=== PATIENT | male | born 1965 | race Caucasian/White ===

== ENCOUNTER 2025-06-01 10:05 | Emergency (ER) | payer SELFPAY ==
[~2025-06-01] VITALS: Ht 177.8 cm; Wt 72.6 kg
[2025-06-01] MEDS ORDERED: LOSA50TA39 PO (10:15)
[2025-06-01 11:10] LABS: PLATELET COUNT (AUTO) 264 K/uL (152-348); RED BLOOD CELL COUNT(AUTO) 4.39 MIL/uL (4.06-5.63); RED CELL DISTRIBUTION WIDTH 13.6 % (12.1-16.2); WHITE BLOOD COUNT (AUTO) 7.0 K/uL (3.6-10.2)
[2025-06-01 11:18] LABS: CREATININE 0.8 mg/dL (0.6-1.3); SODIUM SERUM 137.0 mmol/L (136-145); UREA NITROGEN, BLOOD 10.0 mg/dL (7-18)
[2025-06-01 11:22] LABS: ETHANOL 286.0 MG/DL (0-10)
[2025-06-01 11:24] LABS: ASPARTATE AMINOTRANSFERASE 59.0 U/L (15-37); TOTAL PROTEIN, SERUM 7.9 g/dL (6.4-8.2)
[2025-06-01 12:03] LABS: *BILIRUBIN,URIN NEGATIVE (NEGATIVE); *BLOOD, URINE NEGATIVE (NEGATIVE); *CLARITY,URINE CLEAR (CLEAR); *COLOR,URINE YELLOW (YELLOW); *KETONES,URINE NEGATIVE (NEGATIVE); *PROTEIN,URINE TRACE (NEGATIVE); *UROBILINOGEN,URINE 0.2 E.U./dl (NORMAL); LEUKOCYTE ESTERASE ,URINE NEGATIVE (NEGATIVE); NITRITE, URINE NEGATIVE (NEGATIVE); UGLUCOSE NEGATIVE (NEGATIVE)
[2025-06-01 12:22] LABS: *AMPHETAMINE, URINE NEGATIVE (NEGATIVE); *BARBITURATE, URINE NEGATIVE (NEGATIVE); *BENZODIAZEPINE, URINE NEGATIVE (NEGATIVE); *CANNABINOID, URINE NEGATIVE (NEGATIVE); *COCCAINE, URINE NEGATIVE (NEGATIVE); *OPIATE, URINE NEGATIVE (NEGATIVE); *PHENCYCLIDINE SCREEN,URINE NEGATIVE (NEGATIVE); FENTANYL, URINE NEGATIVE (NEGATIVE)
[2025-06-01 13:14] VITALS: O2SAT 96
== END 2025-06-01 16:16 | disposition home or self-care (01) ==
LOC: ER 10:05
DX: S60.811A Abrasion of right wrist, initial encounter (principal); F10.10 Alcohol abuse, uncomplicated; F60.3 Borderline personality disorder; I25.2 Old myocardial infarction; R07.9 Chest pain, unspecified; F32.A Depression, unspecified; Z20.822 Contact with and (suspected) exposure to COVID-19; Z65.3 Problems related to other legal circumstances; Z79.899 Other long term (current) drug therapy; X78.8XXA Intentional self-harm by other sharp object, initial encounter; Y93.89 Activity, other specified; Y92.89 Other specified places as the place of occurrence of the external cause; Y99.8 Other external cause status; Y90.8 Blood alcohol level of 240 mg/100 ml or more
CPT/HCPCS: 36415; 71045; 85025; A4606; A4663; G0480

== ENCOUNTER 2025-08-17 22:36 | Inpatient (IN) | payer MEDICAID ==
[~2025-08-17] VITALS: Ht 175.3 cm; Wt 73.5 kg
[~2025-08-17 22:36] MED LIST: LOSA50TA39 PO
[2025-08-17] MEDS: PANTOPRAZOLE SODIUM IV 80 MG in IV DEXTROSE 5% 100 ML IV ONE (22:45)
[2025-08-17] MEDS: IV NORMAL SALINE 1000 ML BAG IV ONE (22:45)
[2025-08-17 23:08] LABS: *OCCULT BLOOD STOOL POSITIVE (NEGATIVE)
[2025-08-17] MEDS ORDERED: LIDOCAINE 2% 100 MG/5 ML SYRINGE ONE (23:36)
[2025-08-17 23:39] LABS: WHITE BLOOD COUNT (AUTO) 11.2 K/uL (3.6-10.2)
[2025-08-17 23:41] LABS: PLATELET COUNT (AUTO) 164 K/uL (152-348); RED BLOOD CELL COUNT(AUTO) 1.79 MIL/uL (4.06-5.63); RED CELL DISTRIBUTION WIDTH 14.5 % (12.1-16.2)
[2025-08-17 23:42] LABS: CREATININE 4.5 mg/dL (0.6-1.3); SODIUM SERUM 143 mmol/L (136-145); UREA NITROGEN, BLOOD 79 mg/dL (7-18)
[2025-08-17 23:47] LABS: ASPARTATE AMINOTRANSFERASE 104 U/L (15-37); TOTAL PROTEIN, SERUM 5.8 g/dL (6.4-8.2)
[2025-08-17] MEDS ORDERED: PANTOPRAZOLE SODIUM 40 MG VIAL ONE (23:59)
[2025-08-18] VITALS (99 sets, daily range): BP systolic 52–149; BP diastolic 21–118; TEMP 97–98.8; O2SAT 94–100
[2025-08-18 00:17] LABS: ABG BASE EXCESS -11.1 mmol/L (-2.0-3.0); ABG HCO3 14.3 mmol/L (21.0-28.0); ABG PCO2 29.6 mmHg (35.0-48.0); ABG PH 7.302 (7.350-7.450); ABG PO2 461.9 mmHg (83.0-108.0); ABG SITE LEFT FEMORAL; ABG TOTAL HEMOGLOBIN 5.3 G/dL (13.5-17.5); AaDO2 99.8 mmHg; FIO2 100.0 %; PEEP,BG 5.0 cmH20; SET RATE, BG 18.0; VT, ABG 500 mL
[2025-08-18] MEDS ORDERED: NOREPINEPHRINE 8MG/NS 250ML 250 ML IV ONE ×4 (00:22→04:06)
[2025-08-18 00:30] LABS: LACTIC ACID 38.3 mmol/L (0.4-2.0)
[2025-08-18] MEDS ORDERED: ONDANSETRON 4 MG/2 ML VIAL IV PRN (00:45)
[2025-08-18] MEDS ORDERED: PROPOFOL 100 ML ONE (00:54)
[2025-08-18 01:13] LABS: BAND % (MANUAL) 1 % (0-10); LYMPHOCYTES % (MANUAL) 20 % (20-40); MONOCYTES % (MANUAL) 4 % (2-10); NEUTROPHILS % (MANUAL) 75 % (42-75)
[2025-08-18 01:14] LABS: PLATELET ESTIMATE ADEQUATE
[2025-08-18 01:15] LABS: NUCLEATED RED BLOOD CELLS 3.0 /100WBC
[2025-08-18] MEDS: PROPOFOL 100 ML IV PRN ×2 (01:36→13:39)
[2025-08-18] MEDS: NOREPINEPHRINE BITARTRATE 8 MG in IV NORMAL SALINE 250 ML IV PRN (01:41)
[2025-08-18] MEDS: IV D5/ 0.9% NACL 1,000 ML IV ONE (02:14)
[2025-08-18 02:30] LABS: RED BLOOD CELL COUNT(AUTO) 2.79 MIL/uL (4.06-5.63); RED CELL DISTRIBUTION WIDTH 23.4 % (12.1-16.2); WHITE BLOOD COUNT (AUTO) 15.7 K/uL (3.6-10.2)
[2025-08-18 02:51] LABS: SODIUM SERUM 141.0 mmol/L (136-145)
[2025-08-18 02:52] LABS: CREATININE 4.2 mg/dL (0.6-1.3)
[2025-08-18 02:53] LABS: UREA NITROGEN, BLOOD 81.0 mg/dL (7-18)
[2025-08-18] MEDS ORDERED: PHENYLEPHRINE 10 MG/1 ML VIAL ONE ×2 (03:09→03:14)
[2025-08-18] MEDS ORDERED: PHENYLEPHRINE IV 50 MG in IV NORMAL SALINE 245 ML IV PRN (03:15)
[2025-08-18] MEDS: PHENYLEPHRINE IV 50 MG in IV NORMAL SALINE 245 ML IV PRN (04:27)
[2025-08-18] MEDS ORDERED: MIDAZOLAM HCL 50 MG in IV NORMAL SALINE 40 ML IV PRN (04:45)
[2025-08-18] MEDS ORDERED: SODIUM CHLORIDE 4 MEQ/ML VIAL 154 MEQ in IV 10% DEXTROSE 1,000 ML IV PRN (05:00)
[2025-08-18 05:13] LABS: PLATELET COUNT (AUTO) 119 K/uL (152-348)
[2025-08-18] MEDS: BLOOD SUGAR DIAGNOSTIC 1 EACH STRIP VI SCH ×3 (05:49→20:26)
[2025-08-18] MEDS ORDERED: THIAMINE HCL INJ 100 MG in IV DEXTROSE 5% 50 ML IV SCH (06:00)
[2025-08-18] MEDS ORDERED: NOREPINEPHRINE BITARTRATE 4 MG/4 ML VIAL IV ONE (06:05)
[2025-08-18] MEDS: NOREPINEPHRINE 8MG/NS 250ML 250 ML IV PRN (06:49)
[2025-08-18] MEDS: NOREPINEPHRINE 8MG/NS 250ML 250 ML IV ONE (06:50)
[2025-08-18 07:43] LABS: ABG BASE EXCESS -7.9 mmol/L (-2.0-3.0); ABG HCO3 16.1 mmol/L (21.0-28.0); ABG PCO2 27.0 mmHg (35.0-48.0); ABG PH 7.393 (7.350-7.450); ABG PO2 138.4 mmHg (83.0-108.0); ABG SITE RIGHT RADIAL; ABG TOTAL HEMOGLOBIN 7.3 G/dL (13.5-17.5); AaDO2 98.8 mmHg; FIO2 35.0 %; PEEP,BG 5.0 cmH20; SET RATE, BG 22.0; VT, ABG 500 mL
[2025-08-18] MEDS ORDERED: MAGNESIUM SULFATE/D5W 100 ML IV SCH (08:00)
[2025-08-18] MEDS ORDERED: NOREPINEPHRINE BITARTRATE 32 MG in IV NORMAL SALINE 218 ML IV PRN (08:00)
[2025-08-18] MEDS ORDERED: MVI ADULT 10 ML VIAL=1 AMP 10 ML in IV D5/ 0.9% NACL 1,000 ML IV ONE (08:30)
[2025-08-18 08:35] LABS: CREATININE 4.3 mg/dL (0.6-1.3); SODIUM SERUM 144 mmol/L (136-145); UREA NITROGEN, BLOOD 80 mg/dL (7-18)
[2025-08-18 08:46] LABS: ASPARTATE AMINOTRANSFERASE < 5 U/L (15-37); TOTAL PROTEIN, SERUM 5.2 g/dL (6.4-8.2)
[2025-08-18] MEDS: NOREPINEPHRINE BITARTRATE 32 MG in IV NORMAL SALINE 218 ML IV PRN (08:58)
[2025-08-18] MEDS ORDERED: PANTOPRAZOLE SODIUM IV 80 MG in IV DEXTROSE 5% 500 ML IV SCH (09:00)
[2025-08-18] MEDS ORDERED: THIAMINE HCL 200 MG/2 ML VIAL IV SCH (09:00)
[2025-08-18 09:13] LABS: FIBRINOGEN ACTIVITY 170.0 mg/dL (210-360)
[2025-08-18] MEDS ORDERED: FOLIC ACID 1 MG in IV DEXTROSE 5% 50 ML IV SCH (09:30)
[2025-08-18] MEDS: PHYTONADIONE 10 MG/1 ML AMPUL SQ ONE (09:41)
[2025-08-18] MEDS: PANTOPRAZOLE SODIUM 40 MG VIAL IV SCH (09:41)
[2025-08-18] MEDS: THIAMINE HCL INJ 100 MG in IV DEXTROSE 5% 50 ML IV SCH (09:42)
[2025-08-18] MEDS: VANCOMYCIN IV 1,000 MG in IV DEXTROSE 5% 250 ML IV ONE (10:30)
[2025-08-18] MEDS: POTASSIUM CHLORIDE 50 ML IV SCH ×2 (10:37→14:37)
[2025-08-18] MEDS: OCTREOTIDE ACETATE DRIP 500 MCG in IV NORMAL SALINE 99 ML IV SCH (11:09)
[2025-08-18] MEDS: IV NS 1000 ML 1,000 ML IV ONE ×2 (11:33→16:55)
[2025-08-18 12:24] LABS: *BILIRUBIN,URIN NEGATIVE (NEGATIVE); *BLOOD, URINE 3+ (NEGATIVE); *CLARITY,URINE CLOUDY (CLEAR); *COLOR,URINE YELLOW (YELLOW); *KETONES,URINE TRACE (NEGATIVE); *UROBILINOGEN,URINE 0.2 E.U./dl (NORMAL); LEUKOCYTE ESTERASE ,URINE NEGATIVE (NEGATIVE); NITRITE, URINE NEGATIVE (NEGATIVE); UGLUCOSE NEGATIVE (NEGATIVE)
[2025-08-18 12:25] LABS: *PROTEIN,URINE 3+ (NEGATIVE)
[2025-08-18 12:29] LABS: YEAST,URINE FEW /HPF (NONE SEEN)
[2025-08-18 12:34] LABS: *AMPHETAMINE, URINE NEGATIVE (NEGATIVE); *BARBITURATE, URINE NEGATIVE (NEGATIVE); *BENZODIAZEPINE, URINE NEGATIVE (NEGATIVE); *CANNABINOID, URINE NEGATIVE (NEGATIVE); *COCCAINE, URINE NEGATIVE (NEGATIVE); *OPIATE, URINE NEGATIVE (NEGATIVE); FENTANYL, URINE NEGATIVE (NEGATIVE)
[2025-08-18] MEDS ORDERED: VALS80TA2 PO (12:43)
[2025-08-18] MEDS ORDERED: GABA100C PO (12:43)
[2025-08-18 12:44] LABS: *PHENCYCLIDINE SCREEN,URINE NEGATIVE (NEGATIVE)
[2025-08-18] MEDS ORDERED: TRAZ-182 PO (12:44)
[2025-08-18] MEDS ORDERED: DULO60CA45 PO (12:44)
[2025-08-18] MEDS ORDERED: IBUP200C5 PO (12:45)
[2025-08-18] MEDS ORDERED: VITA-287 PO (12:45)
[2025-08-18] MEDS ORDERED: FLUO20TA28 PO (12:45)
[2025-08-18] MEDS ORDERED: ACET-2605 PO (12:46)
[2025-08-18] MEDS ORDERED: CALC500T13 PO (12:47)
[2025-08-18] MEDS ORDERED: ASPI-973 PO (12:47)
[2025-08-18] MEDS: IV D5/ 0.9% NACL 1,000 ML IV PRN ×2 (12:49→14:39)
[2025-08-18 13:07] LABS: PLATELET COUNT (AUTO) 127 K/uL (152-348); RED BLOOD CELL COUNT(AUTO) 2.61 MIL/uL (4.06-5.63); RED CELL DISTRIBUTION WIDTH 23.0 % (12.1-16.2); WHITE BLOOD COUNT (AUTO) 18.8 K/uL (3.6-10.2)
[2025-08-18 13:10] LABS: CREATININE 4.6 mg/dL (0.6-1.3); SODIUM SERUM 141.0 mmol/L (136-145)
[2025-08-18 13:11] LABS: UREA NITROGEN, BLOOD 85.0 mg/dL (7-18)
[2025-08-18] MEDS: CEFEPIME (MAXEPIME) 1 G in IV DEXTROSE 5% 50 ML IV SCH (13:17)
[2025-08-18] MEDS ORDERED: CEFEPIME HCL 2 GM in IV DEXTROSE 5% 100 ML IV SCH (14:00)
[2025-08-18] MEDS: LACTULOSE 20 G/30 ML LIQUID UDC PO SCH (14:14)
[2025-08-18] MEDS: RIFAXIMIN 550 MG TABLET PO SCH (14:15)
[2025-08-18 16:22] LABS: IRON, SERUM 175.0 ug/dL (50-175)
[2025-08-18] MEDS: PHYTONADIONE 10 MG/1 ML AMPUL SQ SCH (16:54)
[2025-08-18] MEDS ORDERED: AMIODARONE HCL 150 MG/3 ML VIAL IV ONE ×2 (18:00)
[2025-08-18] MEDS ORDERED: EPINEPHRINE 1:10,000 1 MG/10 ML DISP.SYRIN ONE ×3 (18:00)
[2025-08-18] MEDS ORDERED: SODIUM BICARBONATE 4.2 % (NEUT) 5 ML VIAL ONE (18:00)
[2025-08-18] MEDS ORDERED: CALCIUM CHLORIDE 1 GM/10 ML DISP.SYRIN IVP ONE (18:00)
[2025-08-18 20:03] LABS: *RHEUMATOID FACTOR SCREEN NEGATIVE (NEGATIVE)
[2025-08-18 20:06] LABS: HIV-1/2 ANTIBODY NON REACTIVE (NONREACTIVE)
[2025-08-18] MEDS: REMEDY ESSENTIAL ZINC PASTE 113 GM TOP SCH (20:56)
[2025-08-18] MEDS ORDERED: PROPOFOL 200 MG/20 ML BOTTLE ONE (22:15)
[2025-08-19] VITALS (98 sets, daily range): BP systolic 83–143; BP diastolic 58–115; TEMP 98.2–99.7; O2SAT 96–100
[2025-08-19 06:00] LABS: ABG BASE EXCESS 9.8 mmol/L (-2.0-3.0); ABG HCO3 30.1 mmol/L (21.0-28.0); ABG PCO2 25.3 mmHg (35.0-48.0); ABG PH 7.693 (7.350-7.450); ABG PO2 91.4 mmHg (83.0-108.0); ABG SITE RIGHT RADIAL; ABG TOTAL HEMOGLOBIN 8.4 G/dL (13.5-17.5); AaDO2 98.4 mmHg; FIO2 35.0 %; PEEP,BG 5.0 cmH20; SET RATE, BG 22.0; VT, ABG 500 mL
[2025-08-19 06:09] LABS: PLATELET COUNT (AUTO) 87 K/uL (152-348); RED BLOOD CELL COUNT(AUTO) 2.75 MIL/uL (4.06-5.63); RED CELL DISTRIBUTION WIDTH 20.5 % (12.1-16.2); WHITE BLOOD COUNT (AUTO) 13.0 K/uL (3.6-10.2)
[2025-08-19 06:30] LABS: LACTIC ACID 5.3 mmol/L (0.4-2.0)
[2025-08-19 06:44] LABS: CREATINE KINASE, TOTAL 2657 U/L (39-308); CREATININE 3.8 mg/dL (0.6-1.3); SODIUM SERUM 142 mmol/L (136-145); TOTAL PROTEIN, SERUM 5.2 g/dL (6.4-8.2)
[2025-08-19 06:52] LABS: UREA NITROGEN, BLOOD 87 mg/dL (7-18)
[2025-08-19] MEDS ORDERED: MVI ADULT 10 ML VIAL=1 AMP 10 ML in IV D5/ 0.9% NACL 1,000 ML IV SCH (07:00)
[2025-08-19 07:22] LABS: NUCLEATED RED BLOOD CELLS 9.0 /100WBC
[2025-08-19 07:23] LABS: BAND % (MANUAL) 2 % (0-10); LYMPHOCYTES % (MANUAL) 21 % (20-40); METAMYELOCYTES % 4 % (0-1); MONOCYTES % (MANUAL) 6 % (2-10); MYELOCYTES % 2 % (0-0); NEUTROPHILS % (MANUAL) 65 % (42-75); PLATELET ESTIMATE DECREASED
[2025-08-19 07:42] LABS: ABG BASE EXCESS 9.1 mmol/L (-2.0-3.0); ABG HCO3 28.9 mmol/L (21.0-28.0); ABG PCO2 23.2 mmHg (35.0-48.0); ABG PH > 7.711 (7.350-7.450); ABG PO2 117.3 mmHg (83.0-108.0); ABG SITE RIGHT RADIAL; ABG TOTAL HEMOGLOBIN 8.5 G/dL (13.5-17.5); AaDO2 99.1 mmHg; FIO2 35.0 %; PEEP,BG 5.0 cmH20; SET RATE, BG 22.0; VT, ABG 500 mL
[2025-08-19] MEDS: FOLIC ACID 1 MG TABLET NG SCH (08:25)
[2025-08-19] MEDS: MAGNESIUM SULFATE/D5W 100 ML IV SCH (08:28)
[2025-08-19] MEDS: POTASSIUM CHLORIDE 50 ML IV SCH (08:28)
[2025-08-19 09:02] LABS: PLATELET COUNT (AUTO) 85 K/uL (152-348); RED BLOOD CELL COUNT(AUTO) 2.65 MIL/uL (4.06-5.63); RED CELL DISTRIBUTION WIDTH 20.2 % (12.1-16.2); WHITE BLOOD COUNT (AUTO) 14.7 K/uL (3.6-10.2)
[2025-08-19 09:36] LABS: FIBRINOGEN ACTIVITY 205.0 mg/dL (210-360)
[2025-08-19] MEDS: VANCOMYCIN IV 1,000 MG in IV DEXTROSE 5% 250 ML IV ONE (10:45)
[2025-08-19 11:33] LABS: ABG BASE EXCESS 7.7 mmol/L (-2.0-3.0); ABG HCO3 29.6 mmol/L (21.0-28.0); ABG PCO2 30.7 mmHg (35.0-48.0); ABG PH 7.602 (7.350-7.450); ABG PO2 113.1 mmHg (83.0-108.0); ABG SITE RIGHT RADIAL; ABG TOTAL HEMOGLOBIN 8.3 G/dL (13.5-17.5); AaDO2 98.8 mmHg; FIO2 35.0 %; PEEP,BG 5.0 cmH20; SET RATE, BG 14.0; VT, ABG 500 mL
[2025-08-19] MEDS: IV D5/ 0.9% NACL 1,000 ML IV PRN (13:44)
[2025-08-19] MEDS: IV NS 1000 ML 1,000 ML IV PRN (17:14)
[2025-08-19] MEDS: BLOOD SUGAR DIAGNOSTIC 1 EACH STRIP VI SCH (17:53)
[2025-08-20] VITALS (92 sets, daily range): BP systolic 84–140; BP diastolic 59–93; TEMP 98–99.5; O2SAT 96–100
[2025-08-20 05:11] LABS: PTH, INTACT 180 pg/mL (15-65)
[2025-08-20 05:51] LABS: PLATELET COUNT (AUTO) 85 K/uL (152-348); RED BLOOD CELL COUNT(AUTO) 2.71 MIL/uL (4.06-5.63); RED CELL DISTRIBUTION WIDTH 19.9 % (12.1-16.2); WHITE BLOOD COUNT (AUTO) 14.7 K/uL (3.6-10.2)
[2025-08-20 06:25] LABS: CREATINE KINASE, TOTAL 916.0 U/L (39-308); TOTAL PROTEIN, SERUM 4.7 g/dL (6.4-8.2)
[2025-08-20 07:37] LABS: FIBRINOGEN ACTIVITY 274.0 mg/dL (210-360)
[2025-08-20 09:36] LABS: CREATININE 2.5 mg/dL (0.6-1.3); SODIUM SERUM 144.0 mmol/L (136-145); UREA NITROGEN, BLOOD 70.0 mg/dL (7-18)
[2025-08-20] MEDS: VANCOMYCIN IV 1,000 MG in IV DEXTROSE 5% 250 ML IV ONE (11:32)
[2025-08-20 13:12] LABS: FOLATE (FOLIC ACID), SERUM >20.0 ng/mL (>3.0); FREE KAPPA LT CHAINS SERUM 80.1 mg/L (3.3-19.4); FREE LAMBDA LT CHAIN SERUM 73.1 mg/L (5.7-26.3); KAPPA/LAMBDA RATIO SERUM 1.1 (0.26-1.65)
[2025-08-20 13:36] LABS: BAND % (MANUAL) 23 % (0-10); LYMPHOCYTES % (MANUAL) 14 % (20-40); METAMYELOCYTES % 3 % (0-1); MONOCYTES % (MANUAL) 11 % (2-10); NEUTROPHILS % (MANUAL) 44 % (42-75)
[2025-08-20 13:37] LABS: MYELOCYTES % 4 % (0-0)
[2025-08-20 13:38] LABS: PLATELET ESTIMATE DECREASED
[2025-08-20] MEDS: FUROSEMIDE 20 MG/2 ML VIAL IV SCH (14:44)
[2025-08-20] MEDS: POTASSIUM CHLORIDE 50 ML IV SCH (16:26)
[2025-08-20 17:01] LABS: ABG BASE EXCESS 7.4 mmol/L (-2.0-3.0); ABG HCO3 31.3 mmol/L (21.0-28.0); ABG PCO2 41.3 mmHg (35.0-48.0); ABG PH 7.497 (7.350-7.450); ABG PO2 92.0 mmHg (83.0-108.0); ABG SITE LEFT RADIAL; ABG TOTAL HEMOGLOBIN 8.7 G/dL (13.5-17.5); AaDO2 97.6 mmHg; FIO2 35.0 %; PEEP,BG 5.0 cmH20; SET RATE, BG 12.0; VT, ABG 450 mL
[2025-08-21] VITALS (107 sets, daily range): BP systolic 79–139; BP diastolic 47–93; TEMP 98.6–100.3; O2SAT 95–100
[2025-08-21] MEDS: POTASSIUM CHLORIDE 50 ML IV ONE (03:11)
[2025-08-21 06:18] LABS: PLATELET COUNT (AUTO) 98 K/uL (152-348); RED BLOOD CELL COUNT(AUTO) 2.91 MIL/uL (4.06-5.63); RED CELL DISTRIBUTION WIDTH 19.8 % (12.1-16.2); WHITE BLOOD COUNT (AUTO) 16.6 K/uL (3.6-10.2)
[2025-08-21 06:57] LABS: CREATININE 1.8 mg/dL (0.6-1.3); UREA NITROGEN, BLOOD 55.0 mg/dL (7-18)
[2025-08-21 07:08] LABS: ASPARTATE AMINOTRANSFERASE 970.0 U/L (15-37); CREATINE KINASE, TOTAL 371.0 U/L (39-308); TOTAL PROTEIN, SERUM 5.0 g/dL (6.4-8.2)
[2025-08-21 07:40] LABS: SODIUM SERUM 160.0 mmol/L (136-145)
[2025-08-21] MEDS ORDERED: POTASSIUM CHLORIDE 20 MEQ POWDER PACKET GT ONE (08:15)
[2025-08-21] MEDS ORDERED: FREE WATER VIA TUBE FEEDING GT SCH (08:15)
[2025-08-21] MEDS ORDERED: POTASSIUM PHOSPHATE MM 15 MMOL in IV NORMAL SALINE 250 ML IV ONE (08:45)
[2025-08-21] MEDS ORDERED: POTASSIUM CHLORIDE 50 ML IV SCH ×2 (09:00→16:00)
[2025-08-21 09:07] LABS: FIBRINOGEN ACTIVITY 310.0 mg/dL (210-360)
[2025-08-21] MEDS: IV D5W 1000ML 1,000 ML IV ONE (09:43)
[2025-08-21] MEDS: MAGNESIUM SULFATE/D5W 100 ML IV SCH (09:50)
[2025-08-21] MEDS: POTASSIUM CHLORIDE 50 ML IV SCH ×2 (09:51)
[2025-08-21] MEDS: POTASSIUM PHOSPHATE MM 15 MMOL in IV NORMAL SALINE 250 ML IV SCH (09:55)
[2025-08-21 11:50] LABS: CREATININE 1.9 mg/dL (0.6-1.3); SODIUM SERUM 146.0 mmol/L (136-145); UREA NITROGEN, BLOOD 59.0 mg/dL (7-18)
[2025-08-21] MEDS: FREE WATER VIA TUBE FEEDING GT SCH (13:45)
[2025-08-21] MEDS: ACETAMINOPHEN 650 MG SUPP.RECT RC PRN (13:47)
[2025-08-21 16:06] LABS: LYMPHOCYTES % (MANUAL) 20 % (20-40); METAMYELOCYTES % 1 % (0-1); MONOCYTES % (MANUAL) 17 % (2-10); MYELOCYTES % 1 % (0-0); NEUTROPHILS % (MANUAL) 61 % (42-75); PLATELET ESTIMATE MARKED DECREASED
[2025-08-21 18:29] LABS: ABG BASE EXCESS 6.9 mmol/L (-2.0-3.0); ABG HCO3 30.4 mmol/L (21.0-28.0); ABG PCO2 38.8 mmHg (35.0-48.0); ABG PH 7.512 (7.350-7.450); ABG PO2 62.8 mmHg (83.0-108.0); ABG SITE LEFT RADIAL; ABG TOTAL HEMOGLOBIN 9.5 G/dL (13.5-17.5); AaDO2 94.0 mmHg; FIO2 35.0 %; SET RATE, BG 12.0; VT, ABG 450 mL
[2025-08-21 18:48] LABS: ASPARTATE AMINOTRANSFERASE 588.0 U/L (15-37); CREATININE 1.7 mg/dL (0.6-1.3); SODIUM SERUM 145.0 mmol/L (136-145); TOTAL PROTEIN, SERUM 4.9 g/dL (6.4-8.2); UREA NITROGEN, BLOOD 56.0 mg/dL (7-18)
[2025-08-21] MEDS: NOREPINEPHRINE 8MG/NS 250ML 250 ML IV PRN (20:26)
[2025-08-21] MEDS: PIPERACILLIN SODIUM/TAZOBACTAM 3.375 G in IV DEXTROSE 5% 100 ML IV SCH (21:48)
[2025-08-21] MEDS ORDERED: PIPERACILLIN SODIUM/TAZOBACTAM 4.5 G in IV DEXTROSE 5% 50 ML IV SCH (22:00)
[2025-08-22] VITALS (72 sets, daily range): BP systolic 79–151; BP diastolic 52–100; TEMP 98–100.3; O2SAT 94–100
[2025-08-22 05:24] LABS: ABG BASE EXCESS 6.3 mmol/L (-2.0-3.0); ABG HCO3 29.9 mmol/L (21.0-28.0); ABG PCO2 39.0 mmHg (35.0-48.0); ABG PH 7.502 (7.350-7.450); ABG PO2 86.7 mmHg (83.0-108.0); ABG SITE ALINE; ABG TOTAL HEMOGLOBIN 8.6 G/dL (13.5-17.5); AaDO2 97.3 mmHg; FIO2 35.0 %; PEEP,BG 5.0 cmH20; SET RATE, BG 12.0; VT, ABG 500 mL
[2025-08-22 06:08] LABS: PLATELET COUNT (AUTO) 110 K/uL (152-348); RED BLOOD CELL COUNT(AUTO) 2.72 MIL/uL (4.06-5.63); RED CELL DISTRIBUTION WIDTH 19.6 % (12.1-16.2); WHITE BLOOD COUNT (AUTO) 14.6 K/uL (3.6-10.2)
[2025-08-22 06:16] LABS: CREATININE 1.4 mg/dL (0.6-1.3); SODIUM SERUM 144.0 mmol/L (136-145); UREA NITROGEN, BLOOD 50.0 mg/dL (7-18)
[2025-08-22 06:48] LABS: BAND % (MANUAL) 2 % (0-10); EOSINOPHILS % (MANUAL) 2 % (0-8); LYMPHOCYTES % (MANUAL) 16 % (20-40); METAMYELOCYTES % 2 % (0-1); MONOCYTES % (MANUAL) 2 % (2-10); MYELOCYTES % 3 % (0-0); NEUTROPHILS % (MANUAL) 73 % (42-75); PLATELET ESTIMATE DECREASED
[2025-08-22 07:25] LABS: FIBRINOGEN ACTIVITY 298.0 mg/dL (210-360)
[2025-08-22] MEDS: PROTEIN SUPPLEMENT (PROSTAT) 30 ML LIQUID GT SCH (08:22)
[2025-08-22] MEDS: THIAMINE HCL 100 MG TABLET NG SCH (08:24)
[2025-08-23] VITALS (85 sets, daily range): BP systolic 68–148; BP diastolic 48–109; TEMP 97.8–98.7; O2SAT 92–99
[2025-08-23 05:35] LABS: PLATELET COUNT (AUTO) 112 K/uL (152-348); RED BLOOD CELL COUNT(AUTO) 2.78 MIL/uL (4.06-5.63); RED CELL DISTRIBUTION WIDTH 20.5 % (12.1-16.2); WHITE BLOOD COUNT (AUTO) 12.9 K/uL (3.6-10.2)
[2025-08-23 05:48] LABS: CREATININE 1.2 mg/dL (0.6-1.3); SODIUM SERUM 145.0 mmol/L (136-145); UREA NITROGEN, BLOOD 37.0 mg/dL (7-18)
[2025-08-23 06:25] LABS: ASPARTATE AMINOTRANSFERASE 210.0 U/L (15-37); FIBRINOGEN ACTIVITY 279.0 mg/dL (210-360); TOTAL PROTEIN, SERUM 4.9 g/dL (6.4-8.2)
[2025-08-23 06:35] LABS: ABG BASE EXCESS 4.7 mmol/L (-2.0-3.0); ABG HCO3 28.2 mmol/L (21.0-28.0); ABG PCO2 37.5 mmHg (35.0-48.0); ABG PH 7.494 (7.350-7.450); ABG PO2 82.1 mmHg (83.0-108.0); ABG SITE RIGHT RADIAL; ABG TOTAL HEMOGLOBIN 9.2 G/dL (13.5-17.5); AaDO2 96.9 mmHg; FIO2 35.0 %; PEEP,BG 5.0 cmH20
[2025-08-23] MEDS: LORAZEPAM 2 MG/1 ML VIAL IV PRN ×2 (08:47→11:18)
[2025-08-23] MEDS: JEVITY 1.2 1000 ML LIQUID GT PRN (08:50)
[2025-08-23] MEDS: POTASSIUM PHOSPHATE MM 15 MMOL in IV NORMAL SALINE 250 ML IV ONE ×2 (09:06→15:37)
[2025-08-23 09:10] LABS: BAND % (MANUAL) 14 % (0-10); EOSINOPHILS % (MANUAL) 1 % (0-8); LYMPHOCYTES % (MANUAL) 12 % (20-40); METAMYELOCYTES % 5 % (0-1); MONOCYTES % (MANUAL) 14 % (2-10); NEUTROPHILS % (MANUAL) 54 % (42-75)
[2025-08-23 09:11] LABS: PLATELET ESTIMATE ADEQUATE
[2025-08-23] MEDS: PRECEDEX 400 MCG/100 ML BOTTLE 100 ML IV PRN (13:35)
[2025-08-24] VITALS (93 sets, daily range): BP systolic 79–143; BP diastolic 51–122; TEMP 98.4–100.3; O2SAT 92–100
[2025-08-24 05:15] LABS: PLATELET COUNT (AUTO) 108 K/uL (152-348); RED BLOOD CELL COUNT(AUTO) 2.84 MIL/uL (4.06-5.63); RED CELL DISTRIBUTION WIDTH 20.4 % (12.1-16.2); WHITE BLOOD COUNT (AUTO) 9.4 K/uL (3.6-10.2)
[2025-08-24 05:26] LABS: CREATININE 1.1 mg/dL (0.6-1.3); UREA NITROGEN, BLOOD 30.0 mg/dL (7-18)
[2025-08-24 05:32] LABS: SODIUM SERUM 148.0 mmol/L (136-145)
[2025-08-24 05:53] LABS: LYMPHOCYTES % (MANUAL) 18 % (20-40); NEUTROPHILS % (MANUAL) 70 % (42-75)
[2025-08-24 05:54] LABS: EOSINOPHILS % (MANUAL) 1 % (0-8); METAMYELOCYTES % 2 % (0-1); MYELOCYTES % 1 % (0-0)
[2025-08-24 05:55] LABS: BAND % (MANUAL) 2 % (0-10); MONOCYTES % (MANUAL) 6 % (2-10); PLATELET ESTIMATE DECREASED
[2025-08-24 06:06] LABS: *ANTI-SCLERODERMA-70 AB <0.2 AI (0.0-0.9); *RNP ANTIBODIES <0.2 AI (0.0-0.9); *SJOGREN'S ANTI-SS-A <0.2 AI (0.0-0.9); *SJOGREN'S ANTI-SS-B <0.2 AI (0.0-0.9); *SMITH ANTIBODIES <0.2 AI (0.0-0.9); ANTI-DNA(DS) AB, QN 2 IU/mL (0-9); ANTI-NUCLEAR AB DIRECT Negative (Negative)
[2025-08-24 06:27] LABS: ABG BASE EXCESS 2.5 mmol/L (-2.0-3.0); ABG HCO3 25.1 mmol/L (21.0-28.0); ABG PCO2 31.2 mmHg (35.0-48.0); ABG PH 7.523 (7.350-7.450); ABG PO2 62.6 mmHg (83.0-108.0); ABG SITE RIGHT BRACHIAL; ABG TOTAL HEMOGLOBIN 9.3 G/dL (13.5-17.5); AaDO2 94.3 mmHg; FIO2 35.0 %
[2025-08-24] MEDS: ALBUMIN HUMAN 25% 100 ML IV SCH (08:38)
[2025-08-24 09:07] LABS: HEPATITIS B CORE AB, TOTAL Positive (Negative); HEPATITIS B SURFACE AB, QUAL Reactive (.); HEPATITIS B SURFACE AG Negative (Negative); HEPATITIS C VIRUS ANTIBODY Non Reactive (Non Reactive)
[2025-08-24] MEDS: POTASSIUM PHOSPHATE MM 15 MMOL in IV NORMAL SALINE 250 ML IV ONE (10:42)
[2025-08-25] VITALS (80 sets, daily range): BP systolic 101–149; BP diastolic 70–131; TEMP 97.7–99.7; O2SAT 97–100
[2025-08-25 04:07] LABS: *IMMUNOGLOBULIN G, SERUM 822 mg/dL (603-1613); IMMUNOGLOBULIN A, SERUM 236 mg/dL (90-386); IMMUNOGLOBULIN M, SERUM 91 mg/dL (20-172)
[2025-08-25 05:20] LABS: PLATELET COUNT (AUTO) 93 K/uL (152-348); WHITE BLOOD COUNT (AUTO) 5.9 K/uL (3.6-10.2)
[2025-08-25 05:22] LABS: RED CELL DISTRIBUTION WIDTH 20.7 % (12.1-16.2)
[2025-08-25 05:28] LABS: CREATININE 0.9 mg/dL (0.6-1.3); UREA NITROGEN, BLOOD 26.0 mg/dL (7-18)
[2025-08-25 05:32] LABS: SODIUM SERUM 152.0 mmol/L (136-145)
[2025-08-25 05:36] LABS: RED BLOOD CELL COUNT(AUTO) 2.31 MIL/uL (4.06-5.63)
[2025-08-25 05:45] LABS: FIBRINOGEN ACTIVITY 244.0 mg/dL (210-360)
[2025-08-25 06:18] LABS: ABG BASE EXCESS 2.8 mmol/L (-2.0-3.0); ABG HCO3 26.0 mmol/L (21.0-28.0); ABG PCO2 33.9 mmHg (35.0-48.0); ABG PH 7.502 (7.350-7.450); ABG PO2 97.4 mmHg (83.0-108.0); ABG SITE LEFT RADIAL; ABG TOTAL HEMOGLOBIN 8.7 G/dL (13.5-17.5); AaDO2 97.9 mmHg; FIO2 40.0 %; PEEP,BG 5.0 cmH20
[2025-08-25 06:32] LABS: EOSINOPHILS % (MANUAL) 3 % (0-8); LYMPHOCYTES % (MANUAL) 19 % (20-40); MONOCYTES % (MANUAL) 11 % (2-10); MYELOCYTES % 1 % (0-0); NEUTROPHILS % (MANUAL) 66 % (42-75); PLATELET ESTIMATE DECREASED
[2025-08-25] MEDS ORDERED: IPRATROPIUM BROMIDE 0.5 MG/2.5 ML NEBU NEB PRN (08:30)
[2025-08-25] MEDS ORDERED: POTASSIUM PHOSPHATE MM 15 MMOL in IV NORMAL SALINE 250 ML IV ONE (08:30)
[2025-08-25] MEDS ORDERED: ALBUTEROL SULFATE 1.25 MG/3 ML NEBU NEB PRN (08:30)
[2025-08-25] MEDS: POTASSIUM PHOSPHATE MM 15 MMOL in IV NORMAL SALINE 250 ML IV ONE (09:30)
[2025-08-25] MEDS: FUROSEMIDE 20 MG/2 ML VIAL IV SCH (09:30)
[2025-08-25] MEDS ORDERED: PRECEDEX 400 MCG/100 ML BOTTLE 100 ML IV PRN (10:45)
[2025-08-25] MEDS: FREE WATER VIA TUBE FEEDING GT SCH (14:04)
[2025-08-25] MEDS ORDERED: IOHEXOL 300MG/ML 100 ML INFUS..BTL ONE (16:27)
[2025-08-26] VITALS (26 sets, daily range): BP systolic 127–149; BP diastolic 81–105; TEMP 97.4–98.6; O2SAT 96–100
[2025-08-26 05:40] LABS: ABG BASE EXCESS 3.5 mmol/L (-2.0-3.0); ABG HCO3 26.9 mmol/L (21.0-28.0); ABG PCO2 35.9 mmHg (35.0-48.0); ABG PH 7.492 (7.350-7.450); ABG PO2 95.1 mmHg (83.0-108.0); ABG SITE RIGHT RADIAL; ABG TOTAL HEMOGLOBIN 9.2 G/dL (13.5-17.5); AaDO2 97.8 mmHg; FIO2 32.0 %; FLOW, BLOOD GAS 3.00 L/min (0.00-30.00)
[2025-08-26 06:29] LABS: PLATELET COUNT (AUTO) 95 K/uL (152-348); RED BLOOD CELL COUNT(AUTO) 2.81 MIL/uL (4.06-5.63); RED CELL DISTRIBUTION WIDTH 23.5 % (12.1-16.2); WHITE BLOOD COUNT (AUTO) 5.6 K/uL (3.6-10.2)
[2025-08-26 06:41] LABS: CREATININE 0.9 mg/dL (0.6-1.3); SODIUM SERUM 151.0 mmol/L (136-145); UREA NITROGEN, BLOOD 21.0 mg/dL (7-18)
[2025-08-26 06:48] LABS: FIBRINOGEN ACTIVITY 240.0 mg/dL (210-360)
[2025-08-26] MEDS: POTASSIUM CHLORIDE 20 MEQ POWDER PACKET GT ONE (08:56)
[2025-08-27] VITALS (8 sets, daily range): BP systolic 120–146; BP diastolic 83–99; TEMP 97.9–98.9; O2SAT 94–99
[2025-08-27 06:47] LABS: PLATELET COUNT (AUTO) 125 K/uL (152-348); RED BLOOD CELL COUNT(AUTO) 2.90 MIL/uL (4.06-5.63); RED CELL DISTRIBUTION WIDTH 23.4 % (12.1-16.2); WHITE BLOOD COUNT (AUTO) 6.1 K/uL (3.6-10.2)
[2025-08-27 07:19] LABS: CREATININE 0.8 mg/dL (0.6-1.3); SODIUM SERUM 149.0 mmol/L (136-145); UREA NITROGEN, BLOOD 23.0 mg/dL (7-18)
[2025-08-27] MEDS ORDERED: SWABABLE VALVE TRANSFER SET EA MC ONE (11:40)
[2025-08-27] MEDS ORDERED: IOHEXOL 300MG/ML 100 ML INFUS..BTL ONE (11:40)
[2025-08-28 04:28] VITALS: O2SAT 97
[2025-08-28 05:44] VITALS: BP 142/98; TEMP 98.3; O2SAT 98
[2025-08-28 11:38] VITALS: BP 125/79; TEMP 98.6; O2SAT 98
[2025-08-28 12:47] LABS: PLATELET COUNT (AUTO) 140 K/uL (152-348); RED BLOOD CELL COUNT(AUTO) 3.01 MIL/uL (4.06-5.63); RED CELL DISTRIBUTION WIDTH 23.2 % (12.1-16.2); WHITE BLOOD COUNT (AUTO) 7.7 K/uL (3.6-10.2)
[2025-08-28 12:58] LABS: CREATININE 0.8 mg/dL (0.6-1.3); SODIUM SERUM 144.0 mmol/L (136-145); UREA NITROGEN, BLOOD 23.0 mg/dL (7-18)
[2025-08-28 13:06] LABS: FIBRINOGEN ACTIVITY 246.0 mg/dL (210-360)
[2025-08-28 16:00] VITALS: BP 123/64; TEMP 98.1; O2SAT 98; O2SAT 99
[2025-08-28 19:57] VITALS: BP 113/71; TEMP 99.1; O2SAT 97
[2025-08-29 00:55] VITALS: O2SAT 98
[2025-08-29 06:46] VITALS: BP 133/90; TEMP 98.3; O2SAT 97
[2025-08-29 06:56] LABS: PLATELET COUNT (AUTO) 155 K/uL (152-348); RED BLOOD CELL COUNT(AUTO) 2.99 MIL/uL (4.06-5.63); RED CELL DISTRIBUTION WIDTH 23.3 % (12.1-16.2); WHITE BLOOD COUNT (AUTO) 6.5 K/uL (3.6-10.2)
[2025-08-29 07:15] LABS: CREATININE 0.9 mg/dL (0.6-1.3); SODIUM SERUM 149.0 mmol/L (136-145); UREA NITROGEN, BLOOD 19.0 mg/dL (7-18)
[2025-08-29] MEDS: FREE WATER VIA TUBE FEEDING GT SCH (08:49)
[2025-08-29] MEDS: POTASSIUM PHOSPHATE MM 15 MMOL in IV NORMAL SALINE 250 ML IV ONE (08:59)
[2025-08-29] MEDS: METOPROLOL TARTRATE 50 MG TABLET PO SCH (09:39)
[2025-08-29 16:00] VITALS: BP 124/82; TEMP 98.6; O2SAT 99
[2025-08-29 19:52] VITALS: BP 111/79; TEMP 99.8; O2SAT 97
[2025-08-30 04:24] VITALS: O2SAT 98
[2025-08-30 05:22] VITALS: BP 128/84; TEMP 98.7; O2SAT 98
[2025-08-30 07:52] LABS: CREATININE 0.8 mg/dL (0.6-1.3); SODIUM SERUM 147.0 mmol/L (136-145); UREA NITROGEN, BLOOD 15.0 mg/dL (7-18)
[2025-08-30 08:49] LABS: PLATELET COUNT (AUTO) 155 K/uL (152-348); RED BLOOD CELL COUNT(AUTO) 2.64 MIL/uL (4.06-5.63); RED CELL DISTRIBUTION WIDTH 23.7 % (12.1-16.2); WHITE BLOOD COUNT (AUTO) 6.2 K/uL (3.6-10.2)
[2025-08-30] MEDS ORDERED: METOPROLOL TARTRATE 50 MG TABLET PO SCH (09:00)
[2025-08-30] MEDS ORDERED: POTASSIUM CHLORIDE 20 MEQ TAB.PRT.SR PO ONE (09:00)
[2025-08-30] MEDS: FREE WATER VIA TUBE FEEDING GT SCH (09:13)
[2025-08-30] MEDS: METOPROLOL TARTRATE 25 MG TABLET PO SCH (09:16)
[2025-08-30] MEDS: POTASSIUM PHOSPHATE MM 15 MMOL in IV NORMAL SALINE 250 ML IV ONE (10:28)
[2025-08-30 11:11] LABS: PROTEIN, TOTAL 4.8 g/dL (6.0-8.5)
[2025-08-30 11:46] VITALS: O2SAT 98
[2025-08-30 12:00] VITALS: BP 121/84; TEMP 98; O2SAT 96
[2025-08-30 16:23] VITALS: BP 119/80; TEMP 99.8; O2SAT 94
[2025-08-30] MEDS: BLOOD SUGAR DIAGNOSTIC 1 EACH STRIP VI SCH (16:37)
[2025-08-30 20:35] VITALS: BP 114/83; TEMP 100.2; O2SAT 92
[2025-08-31 06:54] VITALS: BP 128/84; TEMP 97.8; O2SAT 94
[2025-08-31 06:54] LABS: PLATELET COUNT (AUTO) 198 K/uL (152-348); RED BLOOD CELL COUNT(AUTO) 2.99 MIL/uL (4.06-5.63); RED CELL DISTRIBUTION WIDTH 23.9 % (12.1-16.2); WHITE BLOOD COUNT (AUTO) 6.6 K/uL (3.6-10.2)
[2025-08-31 07:07] LABS: CREATININE 0.8 mg/dL (0.6-1.3); SODIUM SERUM 149.0 mmol/L (136-145); UREA NITROGEN, BLOOD 19.0 mg/dL (7-18)
[2025-08-31 07:38] LABS: FIBRINOGEN ACTIVITY 261.0 mg/dL (210-360)
[2025-08-31 10:14] VITALS: BP 126/83; O2SAT 94
[2025-08-31 11:14] LABS: ASPARTATE AMINOTRANSFERASE 63.0 U/L (15-37); TOTAL PROTEIN, SERUM 6.2 g/dL (6.4-8.2)
[2025-08-31 11:15] VITALS: BP 131/84; TEMP 98.2; O2SAT 92
[2025-08-31] MEDS: ENOXAPARIN SODIUM 40 MG/0.4 ML DISP.SYRIN SQ SCH (12:04)
[2025-08-31 15:18] VITALS: BP 140/89; TEMP 98.3; O2SAT 94
[2025-08-31 16:05] VITALS: O2SAT 95
[2025-08-31] MEDS: PANTOPRAZOLE ORAL SUSPENSION 40 MG SUSPDR.PKT PO SCH (17:19)
[2025-08-31 19:15] VITALS: BP 138/87; TEMP 98.7; O2SAT 94
[2025-09-01 06:54] LABS: PLATELET COUNT (AUTO) 202 K/uL (152-348); RED BLOOD CELL COUNT(AUTO) 2.80 MIL/uL (4.06-5.63); RED CELL DISTRIBUTION WIDTH 24.5 % (12.1-16.2); WHITE BLOOD COUNT (AUTO) 7.2 K/uL (3.6-10.2)
[2025-09-01 07:08] LABS: CREATININE 0.8 mg/dL (0.6-1.3); SODIUM SERUM 148.0 mmol/L (136-145); UREA NITROGEN, BLOOD 17.0 mg/dL (7-18)
[2025-09-01 07:17] LABS: FIBRINOGEN ACTIVITY 257.0 mg/dL (210-360)
[2025-09-01] MEDS: THIAMINE HCL 100 MG TABLET PO SCH (08:29)
[2025-09-01] MEDS: PROTEIN SUPPLEMENT (PROSTAT) 30 ML LIQUID PO SCH (08:40)
[2025-09-01 08:46] VITALS: BP 137/93
[2025-09-01 11:39] VITALS: BP 130/84; TEMP 98; O2SAT 96
[2025-09-01] MEDS ORDERED: ASPIRIN 81 MG TAB.CHEW PO SCH (12:30)
[2025-09-01 12:53] LABS: ASPARTATE AMINOTRANSFERASE 69.0 U/L (15-37); TOTAL PROTEIN, SERUM 6.1 g/dL (6.4-8.2)
[2025-09-01 15:30] VITALS: BP 106/66; TEMP 98; O2SAT 96
[2025-09-02] VITALS (12 sets, daily range): BP systolic 124–156; BP diastolic 65–96; TEMP 97.2–99.6; O2SAT 92–100
[2025-09-02 04:11] LABS: *IMMUNOGLOBULIN G, SERUM 1356 mg/dL (603-1613); IMMUNOGLOBULIN A, SERUM 433 mg/dL (90-386); IMMUNOGLOBULIN M, SERUM 190 mg/dL (20-172)
[2025-09-02 09:35] LABS: PLATELET COUNT (AUTO) 154 K/uL (152-348); RED CELL DISTRIBUTION WIDTH 25.0 % (12.1-16.2); WHITE BLOOD COUNT (AUTO) 5.7 K/uL (3.6-10.2)
[2025-09-02 10:00] LABS: RED BLOOD CELL COUNT(AUTO) 2.25 MIL/uL (4.06-5.63)
[2025-09-02 10:45] LABS: EOSINOPHILS % (MANUAL) 1 % (0-8); LYMPHOCYTES % (MANUAL) 20 % (20-40); MONOCYTES % (MANUAL) 10 % (2-10); NEUTROPHILS % (MANUAL) 69 % (42-75); PLATELET ESTIMATE ADEQUATE
[2025-09-03] VITALS (8 sets, daily range): BP systolic 137–157; BP diastolic 87–103; TEMP 97.7–98.4; O2SAT 94–98
[2025-09-03 04:45] LABS: *BLOOD, URINE NEGATIVE (NEGATIVE); *KETONES,URINE NEGATIVE (NEGATIVE); *PROTEIN,URINE 1+ (NEGATIVE); *UROBILINOGEN,URINE 0.2 E.U./dl (NORMAL); LEUKOCYTE ESTERASE ,URINE NEGATIVE (NEGATIVE); NITRITE, URINE NEGATIVE (NEGATIVE); UGLUCOSE NEGATIVE (NEGATIVE)
[2025-09-03 04:49] LABS: *BILIRUBIN,URIN 1+ (NEGATIVE); *COLOR,URINE AMBER (YELLOW)
[2025-09-03 04:50] LABS: *CLARITY,URINE HAZY (CLEAR)
[2025-09-03 05:09] LABS: SQUAMOUS EPITHELIAL CELL,UR FEW /HPF (NONE SEEN); URINE AMORPHOUS PHOSPHATES FEW /HPF
[2025-09-03 07:39] LABS: PLATELET COUNT (AUTO) 165 K/uL (152-348); RED BLOOD CELL COUNT(AUTO) 3.24 MIL/uL (4.06-5.63); RED CELL DISTRIBUTION WIDTH 23.5 % (12.1-16.2); WHITE BLOOD COUNT (AUTO) 6.0 K/uL (3.6-10.2)
[2025-09-03 07:58] LABS: ASPARTATE AMINOTRANSFERASE 78.0 U/L (15-37); CREATININE 0.8 mg/dL (0.6-1.3); SODIUM SERUM 147.0 mmol/L (136-145); TOTAL PROTEIN, SERUM 6.0 g/dL (6.4-8.2); UREA NITROGEN, BLOOD 18.0 mg/dL (7-18)
[2025-09-03 08:04] LABS: FIBRINOGEN ACTIVITY 215.0 mg/dL (210-360)
[2025-09-03] MEDS ORDERED: LIDOCAINE HCL 1% 20 ML VIAL ONE (09:44)
[2025-09-03] MEDS ORDERED: IOHEXOL-240 MG , 50 ML VIAL IV ONE (09:45)
[2025-09-03] MEDS ORDERED: HEPARIN/NS 500 ML ONE (09:45)
[2025-09-03] MEDS ORDERED: MAGNESIUM SULFATE/D5W 100 ML IV SCH (09:45)
[2025-09-03] MEDS ORDERED: FENTANYL CITRATE 100 MCG/2 ML AMPUL ONE (09:57)
[2025-09-03] MEDS ORDERED: MIDAZOLAM HCL 2 MG/2 ML VIAL ONE (09:57)
[2025-09-03] MEDS ORDERED: PROPOFOL 200 MG/20 ML BOTTLE ONE (10:00)
[2025-09-03] MEDS ORDERED: CEFAZOLIN 1 G VIAL ONE ×2 (10:00)
[2025-09-03] MEDS: MAGNESIUM SULFATE/D5W 100 ML IV SCH (12:28)
[2025-09-04] VITALS (11 sets, daily range): BP systolic 126–154; BP diastolic 87–101; TEMP 97.8–98.7; O2SAT 96–100
[2025-09-04 07:03] LABS: CREATININE 0.7 mg/dL (0.6-1.3); SODIUM SERUM 147.0 mmol/L (136-145); UREA NITROGEN, BLOOD 16.0 mg/dL (7-18)
[2025-09-04 07:36] LABS: FIBRINOGEN ACTIVITY 120.0 mg/dL (210-360)
[2025-09-04 08:21] LABS: PLATELET COUNT (AUTO) 187 K/uL (152-348); RED BLOOD CELL COUNT(AUTO) 3.68 MIL/uL (4.06-5.63); RED CELL DISTRIBUTION WIDTH 23.7 % (12.1-16.2); WHITE BLOOD COUNT (AUTO) 6.2 K/uL (3.6-10.2)
[2025-09-04] MEDS: diphenhydrAMINE 50 MG/1 ML VIAL IV ONE (16:38)
[2025-09-04] MEDS: ACETAMINOPHEN 325 MG TABLET PO ONE (16:39)
[2025-09-05 06:09] LABS: A/G RATIO 1.0 (0.7-1.7); BETA GLOBULIN 0.6 g/dL (0.7-1.3); GLOBULIN, TOTAL 2.3 g/dL (2.2-3.9); M-SPIKE Not Observed g/dL (Not Observed); PROTEIN, TOTAL 4.7 g/dL (6.0-8.5)
[2025-09-05 06:47] VITALS: BP 147/90; TEMP 98.6; O2SAT 100
[2025-09-05 07:00] LABS: PLATELET COUNT (AUTO) 159 K/uL (152-348); RED BLOOD CELL COUNT(AUTO) 3.09 MIL/uL (4.06-5.63); RED CELL DISTRIBUTION WIDTH 23.5 % (12.1-16.2); WHITE BLOOD COUNT (AUTO) 5.4 K/uL (3.6-10.2)
[2025-09-05 07:08] LABS: CREATININE 0.7 mg/dL (0.6-1.3); SODIUM SERUM 149.0 mmol/L (136-145); UREA NITROGEN, BLOOD 15.0 mg/dL (7-18)
[2025-09-05 07:14] LABS: FIBRINOGEN ACTIVITY 188.0 mg/dL (210-360)
[2025-09-05 08:13] LABS: ASPARTATE AMINOTRANSFERASE 68.0 U/L (15-37); TOTAL PROTEIN, SERUM 5.1 g/dL (6.4-8.2)
[2025-09-05] MEDS: POTASSIUM CHLORIDE 20 MEQ POWDER PACKET GT SCH (09:00)
[2025-09-05 10:52] VITALS: BP 129/81; TEMP 97.6; O2SAT 94
[2025-09-05] MEDS: SERTRALINE HCL 50 MG TABLET PO SCH (13:04)
[2025-09-05] MEDS: POTASSIUM CHLORIDE 50 ML IV SCH (13:05)
[2025-09-05 15:15] VITALS: BP 130/82; TEMP 98.6; O2SAT 96
[2025-09-05 16:35] LABS: IRON, SERUM 40 ug/dL (50-175)
[2025-09-05 19:36] VITALS: BP 140/94; TEMP 98.7; O2SAT 95
[2025-09-05 21:19] LABS: *OCCULT BLOOD STOOL NEGATIVE (NEGATIVE)
[2025-09-06 05:51] VITALS: BP 147/94; TEMP 98; O2SAT 95
[2025-09-06 07:08] LABS: PLATELET COUNT (AUTO) 159 K/uL (152-348); RED BLOOD CELL COUNT(AUTO) 3.45 MIL/uL (4.06-5.63); RED CELL DISTRIBUTION WIDTH 23.1 % (12.1-16.2); WHITE BLOOD COUNT (AUTO) 6.5 K/uL (3.6-10.2)
[2025-09-06 07:39] LABS: CREATININE 0.9 mg/dL (0.6-1.3); SODIUM SERUM 146.0 mmol/L (136-145); UREA NITROGEN, BLOOD 15.0 mg/dL (7-18)
[2025-09-06 08:40] LABS: FIBRINOGEN ACTIVITY 213.0 mg/dL (210-360)
[2025-09-06] MEDS: FERROUS SULFATE 325 MG TABEC PO SCH (10:27)
[2025-09-06 11:31] VITALS: BP 155/106; TEMP 97.8; O2SAT 99
[2025-09-06 15:28] VITALS: O2SAT 98
[2025-09-06 15:43] VITALS: BP 145/90; TEMP 98.9; O2SAT 99
[2025-09-06] MEDS: QUETIAPINE FUMARATE 25 MG TABLET PO PRN (21:33)
[2025-09-06 21:49] VITALS: BP 152/80; TEMP 98.7; O2SAT 96
[2025-09-07 06:13] VITALS: O2SAT 98
[2025-09-07 06:27] VITALS: BP 147/73; TEMP 98.6; O2SAT 97
[2025-09-07 07:24] LABS: PLATELET COUNT (AUTO) 161 K/uL (152-348); RED BLOOD CELL COUNT(AUTO) 3.53 MIL/uL (4.06-5.63); RED CELL DISTRIBUTION WIDTH 23.0 % (12.1-16.2); WHITE BLOOD COUNT (AUTO) 5.8 K/uL (3.6-10.2)
[2025-09-07 08:09] LABS: FIBRINOGEN ACTIVITY 201.0 mg/dL (210-360)
[2025-09-07] MEDS: LORAZEPAM 2 MG/1 ML VIAL IM PRN (09:14)
[2025-09-07 12:00] VITALS: BP 113/70; TEMP 97.6; O2SAT 97
[2025-09-07] MEDS ORDERED: GADOTERATE MEGLUMINE 10 MMOL/20 ML VIAL IV ONE (13:17)
[2025-09-07 15:05] VITALS: O2SAT 98
[2025-09-07 16:00] VITALS: BP 132/61; TEMP 98.3; O2SAT 97
[2025-09-07] MEDS: PROTEIN SUPPLEMENT (PROSTAT) 30 ML LIQUID PO SCH (17:33)
[2025-09-07 19:52] VITALS: BP 143/88; TEMP 98; O2SAT 97
[2025-09-08 00:48] VITALS: BP 135/76; TEMP 98.2; O2SAT 96
[2025-09-08 04:34] VITALS: BP 129/88; TEMP 98.4; O2SAT 94
[2025-09-08 07:14] LABS: PLATELET COUNT (AUTO) 157 K/uL (152-348); RED BLOOD CELL COUNT(AUTO) 3.40 MIL/uL (4.06-5.63); RED CELL DISTRIBUTION WIDTH 23.0 % (12.1-16.2); WHITE BLOOD COUNT (AUTO) 5.8 K/uL (3.6-10.2)
[2025-09-08 07:30] LABS: ASPARTATE AMINOTRANSFERASE 136.0 U/L (15-37); CREATININE 0.9 mg/dL (0.6-1.3); SODIUM SERUM 147.0 mmol/L (136-145); TOTAL PROTEIN, SERUM 6.4 g/dL (6.4-8.2); UREA NITROGEN, BLOOD 17.0 mg/dL (7-18)
[2025-09-08 07:49] LABS: FIBRINOGEN ACTIVITY 202.0 mg/dL (210-360)
[2025-09-08] MEDS ORDERED: LORAZEPAM 2 MG/1 ML VIAL IM PRN (09:15)
[2025-09-08 11:35] VITALS: BP 126/82; TEMP 98.1; O2SAT 100
[2025-09-08] MEDS ORDERED: MIDAZOLAM HCL 50 MG in IV NORMAL SALINE 40 ML IV PRN (12:30)
[2025-09-08 16:20] VITALS: BP 130/84; TEMP 97.8; O2SAT 99
[2025-09-08 19:55] VITALS: BP 119/87; TEMP 98.5; O2SAT 93
[2025-09-09 04:42] VITALS: BP 135/88; TEMP 97.8; O2SAT 95
[2025-09-09 07:25] LABS: FIBRINOGEN ACTIVITY 195.0 mg/dL (210-360)
[2025-09-09] MEDS: FUROSEMIDE 20 MG/2 ML VIAL IV SCH (09:08)
[2025-09-09 12:00] VITALS: BP 131/83; TEMP 97.6; O2SAT 98
[2025-09-09 16:15] VITALS: BP 126/79; TEMP 99; O2SAT 95
[2025-09-09 19:42] VITALS: BP 132/84; TEMP 98.5; O2SAT 95
[2025-09-09] MEDS: LACTULOSE 20 G/30 ML LIQUID UDC PO SCH (20:18)
[2025-09-10 02:07] LABS: A/G RATIO 1.0 (0.7-1.7); BETA GLOBULIN 0.9 g/dL (0.7-1.3); GLOBULIN, TOTAL 3.0 g/dL (2.2-3.9); M-SPIKE Not Observed g/dL (Not Observed); PROTEIN, TOTAL 5.9 g/dL (6.0-8.5)
[2025-09-10 05:42] VITALS: BP 137/85; TEMP 98.7; O2SAT 94
[2025-09-10 07:21] LABS: PLATELET COUNT (AUTO) 141 K/uL (152-348); RED BLOOD CELL COUNT(AUTO) 3.35 MIL/uL (4.06-5.63); RED CELL DISTRIBUTION WIDTH 21.2 % (12.1-16.2); WHITE BLOOD COUNT (AUTO) 6.2 K/uL (3.6-10.2)
[2025-09-10 08:08] VITALS: BP 140/83; TEMP 98.9; O2SAT 94
[2025-09-10 08:50] LABS: CREATININE 0.7 mg/dL (0.6-1.3); SODIUM SERUM 141.0 mmol/L (136-145); UREA NITROGEN, BLOOD 13.0 mg/dL (7-18)
[2025-09-10] MEDS: FUROSEMIDE 20 MG/2 ML VIAL IV SCH (09:24)
[2025-09-10] MEDS: POTASSIUM CHLORIDE 20 MEQ POWDER PACKET PO ONE (10:46)
[2025-09-10 15:46] VITALS: BP 122/80; TEMP 98.9; O2SAT 99
[2025-09-10 19:52] VITALS: BP 117/77; TEMP 98.5; O2SAT 96
[2025-09-11] MEDS: TRAMADOL HCL 50 MG TABLET PO PRN (02:47)
[2025-09-11 04:36] VITALS: BP 115/64; TEMP 97.8; O2SAT 97
[2025-09-11 07:34] LABS: FIBRINOGEN ACTIVITY 188.0 mg/dL (210-360)
[2025-09-11 08:10] VITALS: BP 128/84; TEMP 98.4; O2SAT 97
[2025-09-11 12:00] VITALS: BP 121/77; TEMP 98; O2SAT 97
[2025-09-11 16:00] VITALS: BP 113/64; TEMP 97.8; O2SAT 98
[2025-09-11 19:27] VITALS: BP 111/68; TEMP 98.8; O2SAT 96
[2025-09-12 05:27] VITALS: BP 118/72; TEMP 98.7; O2SAT 95
[2025-09-12] MEDS: SPIRONOLACTONE 25 MG TABLET PO SCH (09:57)
[2025-09-12] MEDS ORDERED: METO25TA6 PO (10:15)
[2025-09-12] MEDS ORDERED: QUET25TA36 PO (10:15)
[2025-09-12] MEDS ORDERED: FERR325T28 PO (10:15)
[2025-09-12] MEDS ORDERED: FURO40TA5 PO (10:15)
[2025-09-12] MEDS ORDERED: SPIR25TA PO (10:15)
[2025-09-12] MEDS ORDERED: LACT10SO7 PO (10:15)
[2025-09-12] MEDS ORDERED: TRAM50TA2 PO (10:15)
[2025-09-12] MEDS ORDERED: SPIR25TA6 PO (10:15)
[2025-09-12] MEDS ORDERED: ALBU1.25 NEB (10:15)
[2025-09-12] MEDS ORDERED: SERT-439 PO (10:15)
[2025-09-12] MEDS ORDERED: IPRA0.2S6 NEB (10:15)
[2025-09-12] MEDS ORDERED: PROT30LI PO (10:15)
[2025-09-12] MEDS ORDERED: PANT40SU2 PO (10:15)
[2025-09-12] MEDS ORDERED: THIA100T13 PO (10:15)
[2025-09-12 11:06] LABS: ASPARTATE AMINOTRANSFERASE 114.0 U/L (15-37); CREATININE 0.8 mg/dL (0.6-1.3); SODIUM SERUM 139.0 mmol/L (136-145); TOTAL PROTEIN, SERUM 6.6 g/dL (6.4-8.2); UREA NITROGEN, BLOOD 17.0 mg/dL (7-18)
[2025-09-12 11:35] VITALS: BP 101/65; TEMP 98.4; O2SAT 94
== END 2025-09-12 14:30 | DRG 243 ==
LOC: ER 22:38 → CCU 08-18 04:05 → TELE3 08-26 10:30 → MEDSURG3 08-27 11:40
PROVIDERS: ADMIT Registered Nurse Psychiatric/Mental Health; ATTEND Registered Nurse Psychiatric/Mental Health
PROC: 30233N1 Transfusion of Nonautologous Red Blood Cells into Peripheral Vein, Percutaneous Approach (ICD-10-PCS; principal; 2025-08-18 22:30)
PROC: 5A1955Z Respiratory Ventilation, Greater than 96 Consecutive Hours (ICD-10-PCS; principal; 2025-08-18 22:30)
PROC: 0DJ08ZZ Inspection of Upper Intestinal Tract, Via Natural or Artificial Opening Endoscopic (ICD-10-PCS; principal; 2025-08-18 22:30)
PROC: 30233K1 Transfusion of Nonautologous Frozen Plasma into Peripheral Vein, Percutaneous Approach (ICD-10-PCS; principal; 2025-08-18 22:30)
PROC: 0BH18EZ Insertion of Endotracheal Airway into Trachea, Via Natural or Artificial Opening Endoscopic (ICD-10-PCS; principal; 2025-08-18 22:30)
PROC: 06HY33Z Insertion of Infusion Device into Lower Vein, Percutaneous Approach (ICD-10-PCS; principal; 2025-08-18 22:30)
PROC: 5A12012 Performance of Cardiac Output, Single, Manual (ICD-10-PCS; principal; 2025-08-18 22:30)
PROC: 05H933Z Insertion of Infusion Device into Right Brachial Vein, Percutaneous Approach (ICD-10-PCS; principal; 2025-08-18 22:30)
PROC: 05H533Z Insertion of Infusion Device into Right Subclavian Vein, Percutaneous Approach (ICD-10-PCS; 2025-08-24)
PROC: 06H03DZ Insertion of Intraluminal Device into Inferior Vena Cava, Percutaneous Approach (ICD-10-PCS; 2025-09-03)
PROC: 30243M1 Transfusion of Nonautologous Plasma Cryoprecipitate into Central Vein, Percutaneous Approach (ICD-10-PCS; 2025-09-04)
DX: K20.91 Esophagitis, unspecified with bleeding (principal); K72.00 Acute and subacute hepatic failure without coma; D65 Disseminated intravascular coagulation [defibrination syndrome]; I46.9 Cardiac arrest, cause unspecified; J96.01 Acute respiratory failure with hypoxia; R57.8 Other shock; A41.9 Sepsis, unspecified organism; E43 Unspecified severe protein-calorie malnutrition; G92.8 Other toxic encephalopathy; R65.21 Severe sepsis with septic shock; D61.818 Other pancytopenia; I49.01 Ventricular fibrillation; N39.0 Urinary tract infection, site not specified; B95.2 Enterococcus as the cause of diseases classified elsewhere; I82.411 Acute embolism and thrombosis of right femoral vein; I82.421 Acute embolism and thrombosis of right iliac vein; J90 Pleural effusion, not elsewhere classified; F33.9 Major depressive disorder, recurrent, unspecified; K70.11 Alcoholic hepatitis with ascites; I10 Essential (primary) hypertension; I48.91 Unspecified atrial fibrillation; D62 Acute posthemorrhagic anemia; E83.39 Other disorders of phosphorus metabolism; E83.42 Hypomagnesemia; E87.6 Hypokalemia; R29.6 Repeated falls; E86.0 Dehydration; E87.0 Hyperosmolality and hypernatremia; E86.1 Hypovolemia; E87.8 Other disorders of electrolyte and fluid balance, not elsewhere classified; K70.31 Alcoholic cirrhosis of liver with ascites; F10.20 Alcohol dependence, uncomplicated; M62.82 Rhabdomyolysis; Z80.0 Family history of malignant neoplasm of digestive organs; T65.91XA Toxic effect of unspecified substance, accidental (unintentional), initial encounter; Y92.009 Unspecified place in unspecified non-institutional (private) residence as the place of occurrence of the external cause; E16.2 Hypoglycemia, unspecified; E88.09 Other disorders of plasma-protein metabolism, not elsewhere classified; Z79.899 Other long term (current) drug therapy; S22.43XD Multiple fractures of ribs, bilateral, subsequent encounter for fracture with routine healing; V49.9XXD Car occupant (driver) (passenger) injured in unspecified traffic accident, subsequent encounter; J98.11 Atelectasis
CPT/HCPCS: 36415; 36600; 70030-TC; 70450; 71045; 71260; 74018; 74181; 76604; 76705; 82378; 82746; 82784; 82803; 83550; 83605; 83690; 83735; 83921; 83970; 84100; 84155; 84165; 84443; 84478; 84484; 85018; 85025; 85610; 85730; 86038; 86334; 86430; 86704; 86706; 86803; 86850; 86900; 86901; 86920; 87040; 87070; 87077; 87086; 87340; 87806; 93307; 94002; 94003; 94760; 97535-GO-CO; 99082-TC; A4606; A4663; A6213; A9575; C1880; G0378; J0169; J0278; J0282; J0690; J0692; J1200; J1644; J1650; J1938; J2003; J2060; J2250; J2354; J2470; J2543; J3010; J3373; J3411; J3430; J3475; J3480; J3490; J3590; J7040; J7042; J7050; J7060; J7131; P9012; P9016; P9047; P9059; Q9966; Q9967